=== PATIENT | male | born 1930 | race Caucasian/White ===

== ENCOUNTER → 2017-01-10 | Outpatient (CLI) | payer OTHER | LOC: FIMAGING 13:41 | PROVIDERS: ATTEND Family Medicine Sports Medicine | DX: M17.11 Unilateral primary osteoarthritis, right knee (principal) ==

== ENCOUNTER → 2017-08-15 | Outpatient (CLI) | payer OTHER | LOC: FIMAGING 15:57 | PROVIDERS: ATTEND Family Medicine Sports Medicine | DX: M79.605 Pain in left leg (principal) ==

== ENCOUNTER → 2017-09-04 | Outpatient (CLI) | payer OTHER | LOC: FIMAGING 18:34 | PROVIDERS: ATTEND Family Medicine Sports Medicine | DX: M25.561 Pain in right knee (principal); M23.231 Derangement of other medial meniscus due to old tear or injury, right knee; M23.631 Other spontaneous disruption of medial collateral ligament of right knee; M76.891 Other specified enthesopathies of right lower limb, excluding foot; M22.41 Chondromalacia patellae, right knee; M25.461 Effusion, right knee; R93.6 Abnormal findings on diagnostic imaging of limbs ==